=== PATIENT | female | born 1960 | race Caucasian/White ===

== ENCOUNTER → 2017-12-29 08:50 | Outpatient (CLI) | payer OTHER | END | disposition home or self-care (01) | LOC: LAB 08:50 | DX: E55.9 Vitamin D deficiency, unspecified (principal); E11.65 Type 2 diabetes mellitus with hyperglycemia; E78.4 Other hyperlipidemia; E03.8 Other specified hypothyroidism; I10 Essential (primary) hypertension ==

== ENCOUNTER 2019-09-02 11:34 | Outpatient (CLI) | payer OTHER | END 2019-09-02 15:11 | disposition home or self-care (01) | LOC: RAD 11:34 | DX: Z12.31 Encounter for screening mammogram for malignant neoplasm of breast (principal); M54.17 Radiculopathy, lumbosacral region | CPT/HCPCS: 72148 ==